=== PATIENT | male | born 1950 | race Caucasian/White ===

== ENCOUNTER 2020-03-13 12:48 | Inpatient (IN) | payer MEDICARE, BC ==
[~2020-03-13] VITALS: Ht 182.9 cm; Wt 59.1 kg
[2020-03-13] MEDS ORDERED: normal saline 1000ML IV soln IVB ONE (13:55)
[2020-03-13 14:21] LABS: BASOPHILS # (AUTO) 0.1 X10'3 (0-0.2); BASOPHILS % (AUTO) 0.8 % (0-1); EOSINOPHILS # (AUTO) 0.1 X10'3 (0-0.9); EOSINOPHILS % (AUTO) 0.9 % (0-6); HEMATOCRIT 42.5 % (42.0-52.0); HEMOGLOBIN 14.4 g/dl (14.0-17.9); LYMPHOCYTES # (AUTO) 3.5 X10'3 (1.1-4.8); LYMPHOCYTES % (AUTO) 32.4 % (21-51); MEAN CORPUSCULAR HEMOGLOBIN 33.8 PG (27.0-31.0); MEAN CORPUSCULAR HGB CONC 33.9 g/dL (33.0-36.5); MEAN CORPUSCULAR VOLUME 99.7 FL (78-98); MEAN PLATELET VOLUME 7.2 FL (7.4-10.4); MONOCYTES # (AUTO) 0.6 X10'3 (0-0.9); MONOCYTES % (AUTO) 5.9 % (2-12); NEUTROPHILS # (AUTO) 6.5 X10'3 (1.8-7.7); PLATELET COUNT 496 X10'3 (140-440); RED BLOOD COUNT 4.26 X10'6 (4.70-6.10); RED CELL DISTRIBUTION WIDTH 13.7 % (11.5-14.5); WHITE BLOOD COUNT 10.8 X10'3 (4.5-11.0)
[2020-03-13 14:39] LABS: ALANINE AMINOTRANSFERASE 34 U/L (12-78); ALBUMIN 3.1 G/DL (3.4-5.0); ALBUMIN/GLOBULIN RATIO 0.8 (1.1-1.5); ALKALINE PHOSPHATASE 62 IU/L (46-116); ANION GAP 11 (8-16); ASPARTATE AMINO TRANSFERASE 19 U/L (10-37); BILIRUBIN,TOTAL 0.7 MG/DL (0.1-1.0); BLOOD UREA NITROGEN 8 MG/DL (7-18); BUN/CREATININE RATIO 13.6 (5.4-32.0); CHLORIDE 104 MMOL/L (99-107); CREATININE 0.59 MG/DL (0.60-1.10); GLUCOSE 79 MG/DL (70-104); POTASSIUM 3.8 MMOL/L (3.5-5.1); SODIUM 138 MMOL/L (135-145); TOTAL CARBON DIOXIDE 23.2 MMOL/L (24-32); TOTAL PROTEIN 6.8 G/DL (6.4-8.2); eGFR > 90 ML/MIN
[2020-03-13 14:48] LABS: ETHANOL < 0.010 GM/DL (0.0-0.010)
[2020-03-14] MEDS: normal saline 1000ml 1,000 ML IV SCH ×2 (01:11→23:06)
[2020-03-14] MEDS ORDERED: potassium Cl 20 mEq SR tablet PO PRN (01:15)
[2020-03-14] MEDS ORDERED: mag hydrox/Alum hydrox/simeth 30ml oral suspension PO PRN (01:15)
[2020-03-14] MEDS ORDERED: magnesium 2GM in 50ml NS 50 ML IV PRN (01:15)
[2020-03-14] MEDS ORDERED: magnesium 4gm in 100ml NS 100 ML IV PRN (01:15)
[2020-03-14] MEDS ORDERED: potassium CL 10mEq/100ml bag 100 ML IV PRN ×2 (01:15)
[2020-03-14 05:00] VITALS: BP 137/85
--- NOTE | 2020-03-14 05:23 | NUR ---
0500 Patient arrived via [facility]. He was able to transfer himslef from [facility] by scooting over. CORTES Owens transferred patent and belongings. I had received report from Graciela, prior to patient being transferred. Addendum: 03/15/20 at 1950 by Paul Agrawal RN Patient did come up to the unit in a hospital gown, I changed it into another one because it was dirty. There was not a cell phone with him at the time of transfer to our unit.
--- NOTE | 2020-03-14 06:29 | NUR ---
Problems reprioritized. Patient report given, questions answered & plan of care reviewed with CORTES Villanueva.
--- NOTE | 2020-03-14 06:35 | NUR ---
Patient in room ORTHO 4009. I have received report from CORTES Miller and had the opportunity to ask questions and assume patient care.
[2020-03-14] MEDS: docusate sod 100mg capsule PO SCH ×2 (08:00→21:13)
[2020-03-14] MEDS: K and/or MAG REPLACEMENT MC SCH ×2 (08:00→20:00)
[2020-03-14 09:36] VITALS: BP 124/82
--- NOTE | 2020-03-14 12:09 | NUR ---
Student documentation: I have reviewed all interventions, assessments performed and documented by CypressVicente Reyes Nicolaus. Student Medication Administration: For this medication-pass time frame, all medication were reviewed, dispensed, administered and documented per hospital policy by Cypress ramo [facility].
--- NOTE | 2020-03-14 14:32 | NUR ---
Low BMI trigger: Pt BMI 17.7. No scaled wt at this time and first admit; MAYRA d/w RN regarding new scaled wt if possible. Pt admit DX weakness, confusion, hx living in hotel and pending eviction when called 911 per EMR. Pt has no significant weakness, no edema/wounds, PO ~50% avg regular diet so far this admit, and appears well-developed/well-nourished per ER note. At this time does not meet minimum malnutrition criteria. Will monitor for ONS needs pending updated wt this admit. To f/u 03/19 for initial assessment. Addendum: 03/14/20 at [address] Amended: Links added.
--- NOTE | 2020-03-14 16:30 | NUR ---
Malnutrition Consult "pt reports hasn't eaten in days": RN TC reports pt non-compliant and WC bound so unable to take scaled wt at this time. No scaled wt this admit. Pt PO 50% avg meals so far this admit decent PO though unable to determine if fully meeting needs since no wt at this time. Will monitor for additional malnutrition criteria this admit. Addendum: 03/14/20 at [address] Amended: Links added.
[2020-03-14 18:00] VITALS: BP 122/81
--- NOTE | 2020-03-14 18:22 | NUR ---
Problems reprioritized. Patient report given, questions answered & plan of care reviewed with Graciela Black RN.
--- NOTE | 2020-03-14 18:37 | NUR ---
Patient in room ORTHO 4009. I have received report from CORTES Villanueva and had the opportunity to ask questions and assume patient care. Addendum: 03/14/20 at 1837 by Ledy Corey RN Amended: Links added.
[2020-03-14] MEDS ORDERED: OLANZapine 2.5MG tablet PO SCH (21:00)
--- NOTE | 2020-03-14 21:34 | NUR ---
talked to traffic warehouse supervisor Gino about cell phone supposedly missing. he will come see patient in a little bit. housekeeping already brought up 3 phones that they have in lost and found - none match his phone. linens being searched as well.
[2020-03-14 22:00] VITALS: BP 139/94
--- NOTE | 2020-03-14 22:23 | NUR ---
Gino, preparation supervisor freezing came to speak with patient.
[2020-03-15 01:32] LABS: CLARITY,URINE CLEAR (Clear); COLOR,URINE YELLOW (Yellow); GLUCOSE, URINE NEGATIVE (Neg); KETONES,URINE NEGATIVE (Neg); LEUKOCYTE ESTERASE ,URINE NEGATIVE (Neg); NITRITES, URINE NEGATIVE (Neg); OCCULT BLOOD,URINE NEGATIVE (Neg); PROTEIN,URINE TRACE mg/dl (Neg); UROBILINOGEN,URINE 0.2 E.U/dL (0.2-1.0)
[2020-03-15 01:35] LABS: UA COLLECTION TYPE NON-SPECIFIED
[2020-03-15 01:37] LABS: BACTERIA,URINE NONE SEEN /HPF (Neg); RBC,URINE 0-2 /HPF (0-2); SQUAMOUS EPITHELIAL CELL,UR FEW /LPF (FEW); WBC,URINE NONE SEEN /HPF (0-4)
[2020-03-15 01:46] LABS: URINE AMPHETAMINE SCREEN NEGATIVE (Neg); URINE BARBITUATE SCREEN NEGATIVE (Neg); URINE BENZODIAZEPINES SCREEN NEGATIVE (Neg); URINE CANNABINOID SCREEN POSITIVE (Neg); URINE COCAINE SCREEN NEGATIVE (Neg); URINE METHADONE SCREEN NEGATIVE (Neg); URINE OPIATE SCREEN NEGATIVE (Neg); URINE PHENCYCLIDINE SCREEN NEGATIVE (Neg)
[2020-03-15 06:00] VITALS: BP 121/81
--- NOTE | 2020-03-15 06:23 | NUR ---
Problems reprioritized. Patient report given, questions answered & plan of care reviewed with CORTES Swain.
[2020-03-15 06:38] LABS: BASOPHILS # (AUTO) 0.1 X10'3 (0-0.2); EOSINOPHILS # (AUTO) 0.1 X10'3 (0-0.9); EOSINOPHILS % (AUTO) 1.3 % (0-6); HEMATOCRIT 35.9 % (42.0-52.0); HEMOGLOBIN 12.4 g/dl (14.0-17.9); LYMPHOCYTES # (AUTO) 2.9 X10'3 (1.1-4.8); LYMPHOCYTES % (AUTO) 30.6 % (21-51); MEAN CORPUSCULAR HEMOGLOBIN 34.2 PG (27.0-31.0); MEAN CORPUSCULAR HGB CONC 34.6 g/dL (33.0-36.5); MEAN CORPUSCULAR VOLUME 98.7 FL (78-98); MEAN PLATELET VOLUME 7.3 FL (7.4-10.4); MONOCYTES # (AUTO) 0.6 X10'3 (0-0.9); MONOCYTES % (AUTO) 6.7 % (2-12); NEUTROPHILS # (AUTO) 5.7 X10'3 (1.8-7.7); NEUTROPHILS % (AUTO) 60.4 % (42-75); PLATELET COUNT 427 X10'3 (140-440); RED BLOOD COUNT 3.63 X10'6 (4.70-6.10); RED CELL DISTRIBUTION WIDTH 13.3 % (11.5-14.5); WHITE BLOOD COUNT 9.4 X10'3 (4.5-11.0)
[2020-03-15 06:45] LABS: ALBUMIN 2.6 G/DL (3.4-5.0); ANION GAP 10 (8-16); BLOOD UREA NITROGEN 8 MG/DL (7-18); BUN/CREATININE RATIO 15.7 (5.4-32.0); CALCIUM 8.4 MG/DL (8.5-10.1); CHLORIDE 108 MMOL/L (99-107); CREATININE 0.51 MG/DL (0.60-1.10); GLUCOSE 84 MG/DL (70-104); MAGNESIUM 1.3 MG/DL (1.5-2.4); POTASSIUM 3.3 MMOL/L (3.5-5.1); SODIUM 141 MMOL/L (135-145); eGFR > 90 ML/MIN
--- NOTE | 2020-03-15 06:57 | NUR ---
Problems reprioritized. Patient report given, questions answered & plan of care reviewed with Graciela KOLB.
[2020-03-15] MEDS: normal saline 1000ml 1,000 ML IV SCH ×2 (07:33→21:47)
[2020-03-15] MEDS: magnesium Cl slow-release 64mg tablet PO PRN ×2 (07:48→21:51)
[2020-03-15] MEDS: potassium Cl 20 mEq SR tablet PO PRN ×3 (07:48→21:51)
[2020-03-15] MEDS: docusate sod 100mg capsule PO SCH ×2 (07:51→21:21)
[2020-03-15] MEDS: K and/or MAG REPLACEMENT MC SCH ×2 (08:00→20:00)
[2020-03-15 10:00] VITALS: BP 113/72
[2020-03-15] MEDS: HYDROcodone/acetaminophen 5mg/325mg tablet PO PRN (14:48)
[2020-03-15 18:00] VITALS: BP 131/90
--- NOTE | 2020-03-15 18:16 | NUR ---
Problems reprioritized. Patient report given, questions answered & plan of care reviewed with Elsy KOLB.
--- NOTE | 2020-03-15 18:46 | NUR ---
Patient in room ORTHO 4009. I have received report from MARCOS KOLB and had the opportunity to ask questions and assume patient care.
[2020-03-15] MEDS: OLANZAPINE 5 MG TABLET PO SCH (21:21)
[2020-03-15 22:00] VITALS: BP 140/74
[2020-03-16 06:10] VITALS: BP 143/88
[2020-03-16 06:18] LABS: BASOPHILS # (AUTO) 0.1 X10'3 (0-0.2); BASOPHILS % (AUTO) 1.2 % (0-1); EOSINOPHILS # (AUTO) 0.1 X10'3 (0-0.9); EOSINOPHILS % (AUTO) 1.1 % (0-6); HEMOGLOBIN 12.7 g/dl (14.0-17.9); LYMPHOCYTES % (AUTO) 25.7 % (21-51); MEAN CORPUSCULAR HEMOGLOBIN 34.4 PG (27.0-31.0); MEAN CORPUSCULAR HGB CONC 34.4 g/dL (33.0-36.5); MEAN CORPUSCULAR VOLUME 100.1 FL (78-98); MEAN PLATELET VOLUME 7.3 FL (7.4-10.4); MONOCYTES # (AUTO) 0.6 X10'3 (0-0.9); MONOCYTES % (AUTO) 5.6 % (2-12); NEUTROPHILS # (AUTO) 7.7 X10'3 (1.8-7.7); NEUTROPHILS % (AUTO) 66.4 % (42-75); PLATELET COUNT 437 X10'3 (140-440); RED CELL DISTRIBUTION WIDTH 12.9 % (11.5-14.5); WHITE BLOOD COUNT 11.6 X10'3 (4.5-11.0)
[2020-03-16 06:19] LABS: HEMOGLOBIN A1C 4.9 % (4.5-6.2)
--- NOTE | 2020-03-16 06:31 | NUR ---
Patient in room ORTHO 4009. I have received report from Elsy KOLB and had the opportunity to ask questions and assume patient care.
--- NOTE | 2020-03-16 06:45 | NUR ---
0400 INCONTINENT OF LARGE SOFT AND UNFORMED STOOL, LINEN CHANGED AND SKIN CARE GIVEN. WITHIN 20 MINS. WAS INCONTINENT AGAIN OF SOFT/LIQUID STOOL. BY 0530 PATIENT HAS 4 LIQUID/URGENT STOOLS. SAMPLE COLLECTED AND SENT TO LAB FOR TESTING. REPORT TO EARLY SHIFT RN AT 0630
[2020-03-16 06:46] LABS: ALBUMIN 2.8 G/DL (3.4-5.0); ANION GAP 12 (8-16); BLOOD UREA NITROGEN 5 MG/DL (7-18); BUN/CREATININE RATIO 9.6 (5.4-32.0); CHLORIDE 108 MMOL/L (99-107); CHOL/HDL RATIO 3.9 (0.00-4.99); CHOLESTEROL 148 MG/DL (0-200); CREATININE 0.52 MG/DL (0.60-1.10); GLUCOSE 87 MG/DL (70-104); HDL CHOLESTEROL 38 MG/DL (35-60); LDL CHOLESTEROL 93 MG/DL (50-100); MAGNESIUM 1.2 MG/DL (1.5-2.4); SODIUM 142 MMOL/L (135-145); TOTAL CARBON DIOXIDE 22.5 MMOL/L (24-32); TRIGLYCERIDES 115 MG/DL (20-135); eGFR > 90 ML/MIN
[2020-03-16 06:52] LABS: CALCIUM 8.4 MG/DL (8.5-10.1)
[2020-03-16] MEDS: docusate sod 100mg capsule PO SCH ×2 (08:00→20:00)
[2020-03-16] MEDS: K and/or MAG REPLACEMENT MC SCH ×2 (08:00→20:00)
[2020-03-16] MEDS: normal saline 1000ml 1,000 ML IV SCH (09:08)
[2020-03-16 10:00] VITALS: BP 96/68
[2020-03-16] MEDS: HYDROcodone/acetaminophen 5mg/325mg tablet PO PRN (10:00)
[2020-03-16] MEDS: magnesium Cl slow-release 64mg tablet PO PRN ×2 (10:01→20:48)
[2020-03-16 13:28] LABS: C DIFF ANTIGEN SEE COMMENTS (NEGATIVE); C DIFF SPECIMEN=DIARRHEA? ACCEPTABLE; C DIFFICILE TOXINS A&B NEGATIVE (Neg)
[2020-03-16 13:34] LABS: C DIFF TOXIN (LAMP) POSITIVE (NEG)
--- NOTE | 2020-03-16 13:57 | NUR ---
Paged Dr. Kimbrough about patient being C-Diff positive.
[2020-03-16] MEDS: vancomycin 125mg/5ml ORAL solution 5ml UD bottle PO SCH ×2 (16:25→20:48)
[2020-03-16 18:00] VITALS: BP 114/77
--- NOTE | 2020-03-16 18:48 | NUR ---
Problems reprioritized. Patient report given, questions answered & plan of care reviewed with Elsy KOLB.
[2020-03-16] MEDS ORDERED: pantoprazole 40mg Tablet.DR PO ONE (19:20)
[2020-03-16] MEDS: OLANZAPINE 5 MG TABLET PO SCH (20:45)
[2020-03-16] MEDS: ondansetron/PF 4mg/2ml inj IV PRN (21:06)
[2020-03-16 21:08] VITALS: BP 142/96
[2020-03-16 22:00] VITALS: BP 142/96
[2020-03-17] MEDS: vancomycin 125mg/5ml ORAL solution 5ml UD bottle PO SCH ×4 (03:03→20:12)
[2020-03-17 06:00] VITALS: BP 100/69
[2020-03-17 06:01] LABS: BASOPHILS # (AUTO) 0.2 X10'3 (0-0.2); BASOPHILS % (AUTO) 1.5 % (0-1); EOSINOPHILS # (AUTO) 0.1 X10'3 (0-0.9); EOSINOPHILS % (AUTO) 0.7 % (0-6); HEMATOCRIT 38.2 % (42.0-52.0); LYMPHOCYTES # (AUTO) 3.1 X10'3 (1.1-4.8); LYMPHOCYTES % (AUTO) 19.8 % (21-51); MEAN CORPUSCULAR HEMOGLOBIN 33.7 PG (27.0-31.0); MEAN CORPUSCULAR VOLUME 99.3 FL (78-98); MEAN PLATELET VOLUME 7.4 FL (7.4-10.4); MONOCYTES # (AUTO) 0.8 X10'3 (0-0.9); MONOCYTES % (AUTO) 4.8 % (2-12); NEUTROPHILS # (AUTO) 11.5 X10'3 (1.8-7.7); NEUTROPHILS % (AUTO) 73.2 % (42-75); PLATELET COUNT 453 X10'3 (140-440); RED BLOOD COUNT 3.85 X10'6 (4.70-6.10); RED CELL DISTRIBUTION WIDTH 13.1 % (11.5-14.5); WHITE BLOOD COUNT 15.8 X10'3 (4.5-11.0)
--- NOTE | 2020-03-17 06:15 | NUR ---
Problems reprioritized. Patient report given, questions answered & plan of care reviewed with CORTES DIEHL.
[2020-03-17 06:26] LABS: ALBUMIN 2.9 G/DL (3.4-5.0); ANION GAP 11 (8-16); BLOOD UREA NITROGEN 6 MG/DL (7-18); BUN/CREATININE RATIO 8.8 (5.4-32.0); CALCIUM 8.9 MG/DL (8.5-10.1); CHLORIDE 108 MMOL/L (99-107); CREATININE 0.68 MG/DL (0.60-1.10); GLUCOSE 98 MG/DL (70-104); MAGNESIUM 1.3 MG/DL (1.5-2.4); POTASSIUM 3.4 MMOL/L (3.5-5.1); SODIUM 144 MMOL/L (135-145); TOTAL CARBON DIOXIDE 25.1 MMOL/L (24-32); eGFR > 90 ML/MIN
--- NOTE | 2020-03-17 06:32 | NUR ---
AGREED WITH STUDENTS ASSMT AND REPORT GIVEN TO FAZAL.
[2020-03-17] MEDS: sertraline 25mg tablet PO SCH (07:55)
[2020-03-17] MEDS: pantoprazole 40mg Tablet.DR PO SCH (07:55)
[2020-03-17] MEDS: docusate sod 100mg capsule PO SCH ×2 (08:00→19:59)
[2020-03-17] MEDS: K and/or MAG REPLACEMENT MC SCH ×2 (08:00→19:59)
[2020-03-17 10:00] VITALS: BP 100/62
[2020-03-17] MEDS ORDERED: normal saline 1000ml 1,000 ML IV SCH (13:55)
[2020-03-17 18:00] VITALS: BP 107/73
--- NOTE | 2020-03-17 18:10 | NUR ---
Received report from Juan Diego KOLB.
--- NOTE | 2020-03-17 18:16 | NUR ---
Problems reprioritized. Patient report given, questions answered & plan of care reviewed with Bree.
[2020-03-17] MEDS ORDERED: potassium CL 10mEq/100ml bag 100 ML IV PRN (18:50)
[2020-03-17] MEDS ORDERED: potassium Cl 20 mEq SR tablet PO PRN (18:50)
[2020-03-17] MEDS ORDERED: magnesium 4gm in 100ml NS 100 ML IV PRN (18:50)
[2020-03-17] MEDS: potassium Cl 20 mEq SR tablet PO PRN (20:08)
[2020-03-17] MEDS: normal saline 1000ml 1,000 ML IV SCH (20:08)
[2020-03-17] MEDS: OLANZAPINE 5 MG TABLET PO SCH (20:08)
[2020-03-17 22:00] VITALS: BP 117/68
[2020-03-18] MEDS: vancomycin 125mg/5ml ORAL solution 5ml UD bottle PO SCH ×4 (02:12→22:13)
[2020-03-18] MEDS: potassium Cl 20 mEq SR tablet PO PRN (02:12)
[2020-03-18] MEDS: normal saline 1000ml 1,000 ML IV SCH ×2 (05:24→15:49)
[2020-03-18 06:00] VITALS: BP 114/75
--- NOTE | 2020-03-18 06:08 | NUR ---
Report given to Shelly KOLB.
[2020-03-18 06:21] LABS: BASOPHILS # (AUTO) 0.1 X10'3 (0-0.2); BASOPHILS % (AUTO) 1.4 % (0-1); EOSINOPHILS # (AUTO) 0.1 X10'3 (0-0.9); EOSINOPHILS % (AUTO) 1.1 % (0-6); HEMATOCRIT 33.1 % (42.0-52.0); HEMOGLOBIN 11.6 g/dl (14.0-17.9); LYMPHOCYTES # (AUTO) 2.7 X10'3 (1.1-4.8); LYMPHOCYTES % (AUTO) 24.6 % (21-51); MEAN CORPUSCULAR HEMOGLOBIN 35.4 PG (27.0-31.0); MEAN CORPUSCULAR HGB CONC 34.9 g/dL (33.0-36.5); MEAN CORPUSCULAR VOLUME 101.4 FL (78-98); MEAN PLATELET VOLUME 7.6 FL (7.4-10.4); MONOCYTES # (AUTO) 0.6 X10'3 (0-0.9); MONOCYTES % (AUTO) 5.6 % (2-12); NEUTROPHILS # (AUTO) 7.3 X10'3 (1.8-7.7); NEUTROPHILS % (AUTO) 67.3 % (42-75); PLATELET COUNT 375 X10'3 (140-440); RED BLOOD COUNT 3.26 X10'6 (4.70-6.10); RED CELL DISTRIBUTION WIDTH 13.1 % (11.5-14.5); WHITE BLOOD COUNT 10.8 X10'3 (4.5-11.0)
[2020-03-18 06:35] LABS: ALBUMIN 2.4 G/DL (3.4-5.0); ANION GAP 11 (8-16); BLOOD UREA NITROGEN 7 MG/DL (7-18); BUN/CREATININE RATIO 12.3 (5.4-32.0); CALCIUM 8.4 MG/DL (8.5-10.1); CHLORIDE 112 MMOL/L (99-107); CREATININE 0.57 MG/DL (0.60-1.10); GLUCOSE 94 MG/DL (70-104); MAGNESIUM 1.3 MG/DL (1.5-2.4); SODIUM 142 MMOL/L (135-145); TOTAL CARBON DIOXIDE 19.4 MMOL/L (24-32); eGFR > 90 ML/MIN
[2020-03-18] MEDS: docusate sod 100mg capsule PO SCH ×2 (07:53→20:00)
[2020-03-18] MEDS: K and/or MAG REPLACEMENT MC SCH ×2 (08:00→19:19)
[2020-03-18] MEDS: pantoprazole 40mg Tablet.DR PO SCH (08:49)
[2020-03-18] MEDS: sertraline 25mg tablet PO SCH (08:49)
[2020-03-18] MEDS: magnesium Cl slow-release 64mg tablet PO PRN (09:35)
[2020-03-18 10:31] VITALS: BP 109/70
[2020-03-18] MEDS: LORazepam 0.5 MG tablet PO PRN (17:22)
[2020-03-18 18:00] VITALS: BP_SYST 131; BP_SYST 84; BP_DIAS 36; BP_DIAS 86
--- NOTE | 2020-03-18 18:31 | NUR ---
Problems reprioritized. Patient report given, questions answered & plan of care reviewed with CORTES Varma.
[2020-03-18 22:00] VITALS: BP 113/74
[2020-03-18] MEDS: OLANZAPINE 5 MG TABLET PO SCH (22:13)
[2020-03-19] MEDS: normal saline 1000ml 1,000 ML IV SCH ×3 (02:00→22:00)
[2020-03-19] MEDS: vancomycin 125mg/5ml ORAL solution 5ml UD bottle PO SCH ×4 (02:32→20:59)
[2020-03-19] MEDS: magnesium Cl slow-release 64mg tablet PO PRN ×3 (02:32→20:59)
[2020-03-19 05:36] LABS: BASOPHILS # (AUTO) 0.1 X10'3 (0-0.2); BASOPHILS % (AUTO) 1.5 % (0-1); EOSINOPHILS # (AUTO) 0.2 X10'3 (0-0.9); EOSINOPHILS % (AUTO) 1.8 % (0-6); HEMATOCRIT 34.1 % (42.0-52.0); HEMOGLOBIN 11.7 g/dl (14.0-17.9); LYMPHOCYTES # (AUTO) 2.8 X10'3 (1.1-4.8); LYMPHOCYTES % (AUTO) 30.3 % (21-51); MEAN CORPUSCULAR HGB CONC 34.2 g/dL (33.0-36.5); MEAN CORPUSCULAR VOLUME 99.4 FL (78-98); MEAN PLATELET VOLUME 7.4 FL (7.4-10.4); MONOCYTES # (AUTO) 0.5 X10'3 (0-0.9); MONOCYTES % (AUTO) 5.6 % (2-12); NEUTROPHILS # (AUTO) 5.5 X10'3 (1.8-7.7); NEUTROPHILS % (AUTO) 60.8 % (42-75); PLATELET COUNT 352 X10'3 (140-440); RED BLOOD COUNT 3.43 X10'6 (4.70-6.10); RED CELL DISTRIBUTION WIDTH 12.9 % (11.5-14.5); WHITE BLOOD COUNT 9.1 X10'3 (4.5-11.0)
[2020-03-19 05:46] LABS: ALBUMIN 2.5 G/DL (3.4-5.0); ANION GAP 9 (8-16); BLOOD UREA NITROGEN 5 MG/DL (7-18); BUN/CREATININE RATIO 9.8 (5.4-32.0); CALCIUM 8.8 MG/DL (8.5-10.1); CHLORIDE 110 MMOL/L (99-107); CREATININE 0.51 MG/DL (0.60-1.10); GLUCOSE 83 MG/DL (70-104); MAGNESIUM 1.3 MG/DL (1.5-2.4); POTASSIUM 3.9 MMOL/L (3.5-5.1); SODIUM 140 MMOL/L (135-145); eGFR > 90 ML/MIN
[2020-03-19] MEDS: K and/or MAG REPLACEMENT MC SCH ×2 (08:00→20:00)
[2020-03-19] MEDS: sertraline 25mg tablet PO SCH (08:17)
[2020-03-19] MEDS: docusate sod 100mg capsule PO SCH ×2 (08:18→20:59)
[2020-03-19] MEDS: pantoprazole 40mg Tablet.DR PO SCH (08:18)
[2020-03-19 10:00] VITALS: BP 116/81
[2020-03-19] MEDS: LORazepam 0.5 MG tablet PO PRN (10:32)
--- NOTE | 2020-03-19 11:46 | NUR ---
Initial: Pt admit DX weakness essentially WC bound and homeless, c.diff, depression, and possible personality disorder per MD note. PO fluctuates 25-50% initial meals w/ occasional 100% partially meeting needs. BMI 17.7 pending updated wt this admit; MAYRA d/w RN regarding new wt this admit and holding routine colace given c.diff DX if MD agreeable. Pt well-developed/well-nourished per ER note. Noted emesis of undigested food documented in EMR though continued PO meals; likely error. RD recommended ensure enlive BIDBD for additional protein/kcal needs; MD notified. Pt AOx3 and confused likely impacting PO as well. Will continue to monitor for PO/ONS acceptance. Rec: 1. continue regular diet 2. ensure enlive BIDBD 3. consider anti-diarrheal if MD agreeable given DX 4. weekly wts Addendum: 03/19/20 at [address] Amended: Links added.
[2020-03-19 18:00] VITALS: BP 126/81
--- NOTE | 2020-03-19 18:46 | NUR ---
Patient in room ORTHO 4009. I have received report from Julienne KOLB and had the opportunity to ask questions and assume patient care.
--- NOTE | 2020-03-19 18:50 | NUR ---
Problems reprioritized. Patient report given, questions answered & plan of care reviewed with CORTES Parr.
[2020-03-19] MEDS: OLANZAPINE 5 MG TABLET PO SCH (20:59)
[2020-03-19 22:00] VITALS: BP 98/64
[2020-03-20] MEDS: vancomycin 125mg/5ml ORAL solution 5ml UD bottle PO SCH ×4 (03:20→20:34)
--- NOTE | 2020-03-20 06:20 | NUR ---
Problems reprioritized. Patient report given, questions answered & plan of care reviewed with Asim KOLB.
--- NOTE | 2020-03-20 06:33 | NUR ---
Patient in room ORTHO 4009. I have received report from AZIZA and had the opportunity to ask questions and assume patient care.
[2020-03-20 06:35] VITALS: BP 131/84
[2020-03-20] MEDS: sertraline 25mg tablet PO SCH (07:14)
[2020-03-20] MEDS: docusate sod 100mg capsule PO SCH ×2 (07:14→20:34)
[2020-03-20] MEDS: pantoprazole 40mg Tablet.DR PO SCH (07:14)
[2020-03-20] MEDS: normal saline 1000ml 1,000 ML IV SCH ×2 (07:17→18:00)
[2020-03-20] MEDS: K and/or MAG REPLACEMENT MC SCH ×2 (08:00→20:00)
[2020-03-20] MEDS: HYDROcodone/acetaminophen 5mg/325mg tablet PO PRN ×2 (08:52→13:28)
--- NOTE | 2020-03-20 10:56 | NUR ---
transfers mod x1 with nursing from wheel chair to bed. Addendum: 03/20/20 at 1057 by Asim Persaud RN Amended: Links added.
[2020-03-20] MEDS ORDERED: GADOTERATE MEGLUMINE 7.5 MMOL/15 ML VIAL IV ONE (11:06)
--- NOTE | 2020-03-20 12:15 | NUR ---
Student documentation: I have reviewed assessment performed and documented by Mackenzie GRANADOS [facility].
--- NOTE | 2020-03-20 15:31 | NUR ---
Student documentation: I have reviewed all interventions, assessments performed and documented by Twila VAZQUEZ
[2020-03-20 18:00] VITALS: BP 150/98
--- NOTE | 2020-03-20 18:22 | NUR ---
Problems reprioritized. Patient report given, questions answered & plan of care reviewed with
--- NOTE | 2020-03-20 18:42 | NUR ---
Patient in room ORTHO 4009. I have received report from Asim KOLB and had the opportunity to ask questions and assume patient care.
[2020-03-20] MEDS: OLANZAPINE 5 MG TABLET PO SCH (20:34)
[2020-03-20 22:00] VITALS: BP 131/78
--- NOTE | 2020-03-21 00:42 | NUR ---
Paged hospitalist about ordering K and MG replacement protocol. Pt. MG was 1.3 today. No response. Will pass onto day shift RN
[2020-03-21] MEDS: vancomycin 125mg/5ml ORAL solution 5ml UD bottle PO SCH ×4 (01:32→22:10)
[2020-03-21] MEDS: normal saline 1000ml 1,000 ML IV SCH ×2 (03:57→14:00)
[2020-03-21] MEDS: HYDROcodone/acetaminophen 5mg/325mg tablet PO PRN ×2 (05:57→17:53)
[2020-03-21 06:00] VITALS: BP 136/83
--- NOTE | 2020-03-21 06:37 | NUR ---
Problems reprioritized. Patient report given, questions answered & plan of care reviewed with Becky KOLB.
--- NOTE | 2020-03-21 06:44 | NUR ---
Patient in room ORTHO 4009. I have received report from CORTES Slade and had the opportunity to ask questions and assume patient care.
[2020-03-21] MEDS: K and/or MAG REPLACEMENT MC SCH ×3 (08:00→20:00)
[2020-03-21] MEDS: sertraline 25mg tablet PO SCH (09:03)
[2020-03-21] MEDS: pantoprazole 40mg Tablet.DR PO SCH (09:03)
[2020-03-21] MEDS: docusate sod 100mg capsule PO SCH ×2 (09:03→22:10)
[2020-03-21 10:00] VITALS: BP 123/72
--- NOTE | 2020-03-21 14:43 | NUR ---
PT notified primary RN of skin tear to left posterior hand, occurring during physical therapy when pt was transferring self to wheelchair. Hydrophyllic foam applied. Will continue to monitor.
[2020-03-21] MEDS ORDERED: magnesium Cl slow-release 64mg tablet PO PRN (15:30)
[2020-03-21] MEDS ORDERED: magnesium 4gm in 100ml NS 100 ML IV PRN (15:30)
[2020-03-21] MEDS ORDERED: potassium Cl 20 mEq SR tablet PO PRN ×2 (15:30)
[2020-03-21] MEDS ORDERED: potassium CL 10mEq/100ml bag 100 ML IV PRN (15:30)
[2020-03-21 18:00] VITALS: BP 112/71
--- NOTE | 2020-03-21 18:00 | NUR ---
RECEIVED REPORT FROM NNEKA KOLB AND ASSUMED PATIENT CARE
--- NOTE | 2020-03-21 18:37 | NUR ---
Problems reprioritized. Patient report given, questions answered & plan of care reviewed with CORTES Green.
[2020-03-21 22:00] VITALS: BP 112/75
[2020-03-21] MEDS: OLANZAPINE 5 MG TABLET PO SCH (22:10)
[2020-03-22] MEDS: vancomycin 125mg/5ml ORAL solution 5ml UD bottle PO SCH ×4 (01:56→20:23)
[2020-03-22 03:30] VITALS: BP 123/83
[2020-03-22 05:26] LABS: BASOPHILS # (AUTO) 0.1 X10'3 (0-0.2); BASOPHILS % (AUTO) 1.2 % (0-1); EOSINOPHILS # (AUTO) 0.1 X10'3 (0-0.9); EOSINOPHILS % (AUTO) 1.5 % (0-6); HEMATOCRIT 33.3 % (42.0-52.0); HEMOGLOBIN 11.5 g/dl (14.0-17.9); LYMPHOCYTES # (AUTO) 2.7 X10'3 (1.1-4.8); LYMPHOCYTES % (AUTO) 27.7 % (21-51); MEAN CORPUSCULAR HEMOGLOBIN 34.5 PG (27.0-31.0); MEAN CORPUSCULAR HGB CONC 34.6 g/dL (33.0-36.5); MEAN CORPUSCULAR VOLUME 99.6 FL (78-98); MEAN PLATELET VOLUME 8.1 FL (7.4-10.4); MONOCYTES # (AUTO) 0.6 X10'3 (0-0.9); MONOCYTES % (AUTO) 5.8 % (2-12); NEUTROPHILS # (AUTO) 6.3 X10'3 (1.8-7.7); NEUTROPHILS % (AUTO) 63.8 % (42-75); PLATELET COUNT 356 X10'3 (140-440); RED BLOOD COUNT 3.34 X10'6 (4.70-6.10); RED CELL DISTRIBUTION WIDTH 12.9 % (11.5-14.5); WHITE BLOOD COUNT 9.8 X10'3 (4.5-11.0)
[2020-03-22 06:05] LABS: ALANINE AMINOTRANSFERASE 23 U/L (12-78); ALBUMIN 2.8 G/DL (3.4-5.0); ALBUMIN/GLOBULIN RATIO 0.9 (1.1-1.5); ALKALINE PHOSPHATASE 49 IU/L (46-116); ANION GAP 10 (8-16); ASPARTATE AMINO TRANSFERASE 11 U/L (10-37); BILIRUBIN,TOTAL 0.4 MG/DL (0.1-1.0); BLOOD UREA NITROGEN 8 MG/DL (7-18); BUN/CREATININE RATIO 15.7 (5.4-32.0); CALCIUM 8.6 MG/DL (8.5-10.1); CHLORIDE 106 MMOL/L (99-107); CREATININE 0.51 MG/DL (0.60-1.10); GLUCOSE 89 MG/DL (70-104); POTASSIUM 3.5 MMOL/L (3.5-5.1); SODIUM 141 MMOL/L (135-145); TOTAL CARBON DIOXIDE 24.7 MMOL/L (24-32); TOTAL PROTEIN 5.8 G/DL (6.4-8.2); eGFR > 90 ML/MIN
--- NOTE | 2020-03-22 06:18 | NUR ---
Reported off to Becky KOLB. Patient is resting with relaxed and unlabored respirations on room air. Call light and items of frequent use within reach.
--- NOTE | 2020-03-22 06:23 | NUR ---
Patient in room LILY 358. I have received report from CORTES Willson and had the opportunity to ask questions and assume patient care.
[2020-03-22 07:00] VITALS: BP 122/86
[2020-03-22] MEDS: docusate sod 100mg capsule PO SCH ×2 (08:00→19:30)
[2020-03-22] MEDS: K and/or MAG REPLACEMENT MC SCH ×4 (08:00→19:32)
[2020-03-22] MEDS: sertraline 25mg tablet PO SCH (08:39)
[2020-03-22] MEDS: pantoprazole 40mg Tablet.DR PO SCH (08:39)
[2020-03-22 11:00] VITALS: BP 114/75
--- NOTE | 2020-03-22 14:20 | NUR ---
Reassessment: Pt s/p MRI of the cervical spine, awaiting return call from spinal surgeon/neurosurgeon to discuss the MRI results per MD notes. Patient's PO intake is up to average 75-100% since last RD assessment (03/19) meeting estimated nutrient needs. LBM 03/22, stools improving per MD notes though pt documented with diarrhea today in GI trends. Will continue to follow and monitor need for nutrition intervention. Rec: 1. continue regular diet 2. Ensure Enlive BIDBD 3. consider anti-diarrheal if MD agreeable given DX 4. weekly wts Addendum: 03/22/20 at [address] Amended: Links added.
[2020-03-22 18:00] VITALS: BP 135/87
--- NOTE | 2020-03-22 18:10 | NUR ---
Problems reprioritized. Patient report given, questions answered & plan of care reviewed with CORTES Bonner.
[2020-03-22] MEDS: OLANZAPINE 5 MG TABLET PO SCH (20:23)
[2020-03-22] MEDS: HYDROcodone/acetaminophen 5mg/325mg tablet PO PRN (22:42)
[2020-03-23] MEDS: vancomycin 125mg/5ml ORAL solution 5ml UD bottle PO SCH ×4 (02:52→20:08)
[2020-03-23 04:36] VITALS: BP 127/79
[2020-03-23 05:16] LABS: BASOPHILS # (AUTO) 0.1 X10'3 (0-0.2); BASOPHILS % (AUTO) 0.8 % (0-1); EOSINOPHILS # (AUTO) 0.2 X10'3 (0-0.9); EOSINOPHILS % (AUTO) 2.1 % (0-6); HEMATOCRIT 34.7 % (42.0-52.0); HEMOGLOBIN 11.9 g/dl (14.0-17.9); LYMPHOCYTES # (AUTO) 2.8 X10'3 (1.1-4.8); LYMPHOCYTES % (AUTO) 31.6 % (21-51); MEAN CORPUSCULAR HGB CONC 34.4 g/dL (33.0-36.5); MEAN CORPUSCULAR VOLUME 98.7 FL (78-98); MEAN PLATELET VOLUME 7.7 FL (7.4-10.4); MONOCYTES # (AUTO) 0.9 X10'3 (0-0.9); MONOCYTES % (AUTO) 10.8 % (2-12); NEUTROPHILS # (AUTO) 4.8 X10'3 (1.8-7.7); NEUTROPHILS % (AUTO) 54.7 % (42-75); PLATELET COUNT 358 X10'3 (140-440); RED BLOOD COUNT 3.51 X10'6 (4.70-6.10); RED CELL DISTRIBUTION WIDTH 12.9 % (11.5-14.5); WHITE BLOOD COUNT 8.7 X10'3 (4.5-11.0)
[2020-03-23 05:25] LABS: ALANINE AMINOTRANSFERASE 20 U/L (12-78); ALBUMIN 2.8 G/DL (3.4-5.0); ALBUMIN/GLOBULIN RATIO 0.9 (1.1-1.5); ALKALINE PHOSPHATASE 53 IU/L (46-116); ANION GAP 5 (8-16); ASPARTATE AMINO TRANSFERASE 8 U/L (10-37); BILIRUBIN,TOTAL 0.4 MG/DL (0.1-1.0); BLOOD UREA NITROGEN 8 MG/DL (7-18); BUN/CREATININE RATIO 12.7 (5.4-32.0); CALCIUM 9.3 MG/DL (8.5-10.1); CHLORIDE 107 MMOL/L (99-107); CREATININE 0.63 MG/DL (0.60-1.10); GLUCOSE 97 MG/DL (70-104); SODIUM 141 MMOL/L (135-145); TOTAL CARBON DIOXIDE 28.7 MMOL/L (24-32); eGFR > 90 ML/MIN
--- NOTE | 2020-03-23 07:03 | NUR ---
Patient in room LILY 358. I have received report from WOO KOLB and had the opportunity to ask questions and assume patient care.
[2020-03-23 07:08] VITALS: BP 145/83
[2020-03-23] MEDS: K and/or MAG REPLACEMENT MC SCH ×4 (08:00→20:00)
[2020-03-23] MEDS: docusate sod 100mg capsule PO SCH ×2 (08:37→20:00)
[2020-03-23] MEDS: sertraline 25mg tablet PO SCH (08:37)
[2020-03-23] MEDS: pantoprazole 40mg Tablet.DR PO SCH (08:38)
[2020-03-23 11:00] VITALS: BP 135/81
[2020-03-23 12:39] LABS: MAGNESIUM 1.7 MG/DL (1.5-2.4)
[2020-03-23 18:00] VITALS: BP 122/80
--- NOTE | 2020-03-23 18:38 | NUR ---
. patient pleasant and cooperative. No c/o pain. Seen by DR Driver , continues on PO vanco for positive c.diff .No c/o pain. is social admit awaiting placement.report given to Prudence RN
[2020-03-23] MEDS: OLANZAPINE 5 MG TABLET PO SCH (20:08)
[2020-03-23] MEDS: HYDROcodone/acetaminophen 5mg/325mg tablet PO PRN (20:17)
--- NOTE | 2020-03-23 20:23 | NUR ---
Patient refused due to loose bm
[2020-03-24 00:40] VITALS: BP 104/70
[2020-03-24] MEDS: vancomycin 125mg/5ml ORAL solution 5ml UD bottle PO SCH ×4 (02:48→19:53)
--- NOTE | 2020-03-24 05:07 | NUR ---
Student documentation: I have reviewed and agree with all interventions, assessments performed and documented by CORIN Bhatti
--- NOTE | 2020-03-24 05:08 | NUR ---
Student Medication Administration: For this medication-pass time frame, all medication were reviewed, dispensed, administered and documented per hospital policy by CORIN Bhatti
[2020-03-24 05:19] LABS: BASOPHILS # (AUTO) 0.1 X10'3 (0-0.2); BASOPHILS % (AUTO) 0.8 % (0-1); EOSINOPHILS # (AUTO) 0.2 X10'3 (0-0.9); EOSINOPHILS % (AUTO) 1.8 % (0-6); HEMATOCRIT 36.9 % (42.0-52.0); HEMOGLOBIN 12.4 g/dl (14.0-17.9); LYMPHOCYTES # (AUTO) 2.6 X10'3 (1.1-4.8); LYMPHOCYTES % (AUTO) 28.8 % (21-51); MEAN CORPUSCULAR HEMOGLOBIN 33.3 PG (27.0-31.0); MEAN CORPUSCULAR HGB CONC 33.6 g/dL (33.0-36.5); MEAN PLATELET VOLUME 7.8 FL (7.4-10.4); MONOCYTES # (AUTO) 0.8 X10'3 (0-0.9); MONOCYTES % (AUTO) 8.3 % (2-12); NEUTROPHILS # (AUTO) 5.4 X10'3 (1.8-7.7); NEUTROPHILS % (AUTO) 60.3 % (42-75); PLATELET COUNT 383 X10'3 (140-440); RED BLOOD COUNT 3.73 X10'6 (4.70-6.10); RED CELL DISTRIBUTION WIDTH 13.1 % (11.5-14.5)
[2020-03-24 05:22] LABS: ALANINE AMINOTRANSFERASE 23 U/L (12-78); ALBUMIN/GLOBULIN RATIO 0.8 (1.1-1.5); ALKALINE PHOSPHATASE 58 IU/L (46-116); ANION GAP 8 (8-16); ASPARTATE AMINO TRANSFERASE 11 U/L (10-37); BILIRUBIN,TOTAL 0.4 MG/DL (0.1-1.0); BLOOD UREA NITROGEN 13 MG/DL (7-18); BUN/CREATININE RATIO 22.8 (5.4-32.0); CALCIUM 9.7 MG/DL (8.5-10.1); CHLORIDE 103 MMOL/L (99-107); CREATININE 0.57 MG/DL (0.60-1.10); GLUCOSE 97 MG/DL (70-104); POTASSIUM 3.7 MMOL/L (3.5-5.1); SODIUM 141 MMOL/L (135-145); TOTAL CARBON DIOXIDE 29.7 MMOL/L (24-32); TOTAL PROTEIN 6.6 G/DL (6.4-8.2); eGFR > 90 ML/MIN
--- NOTE | 2020-03-24 06:11 | NUR ---
Problems reprioritized. Patient report given, questions answered & plan of care reviewed with JIM KOLB.Patient resting with no sign of discomfort. He had 2 large BMs on noc shift.
--- NOTE | 2020-03-24 06:48 | NUR ---
Patient in room LILY 358B. I have received report from CORTES ARMSTRONG and had the opportunity to ask questions and assume patient care.
[2020-03-24 07:00] VITALS: BP 96/67
[2020-03-24] MEDS: docusate sod 100mg capsule PO SCH ×2 (08:00→19:53)
[2020-03-24] MEDS: K and/or MAG REPLACEMENT MC SCH ×4 (08:00→19:19)
[2020-03-24] MEDS: sertraline 25mg tablet PO SCH (09:41)
[2020-03-24] MEDS: pantoprazole 40mg Tablet.DR PO SCH (09:41)
[2020-03-24 11:00] VITALS: BP 90/60
--- NOTE | 2020-03-24 18:33 | NUR ---
Problems reprioritized. Patient report given, questions answered & plan of care reviewed with CORTES DESIR.
[2020-03-24] MEDS: OLANZAPINE 5 MG TABLET PO SCH (19:53)
[2020-03-24 19:57] VITALS: BP 107/63
[2020-03-24] MEDS: HYDROcodone/acetaminophen 5mg/325mg tablet PO PRN (20:04)
[2020-03-25 00:03] VITALS: BP 109/70
[2020-03-25] MEDS: vancomycin 125mg/5ml ORAL solution 5ml UD bottle PO SCH ×4 (02:32→21:38)
[2020-03-25 05:29] LABS: BASOPHILS # (AUTO) 0.1 X10'3 (0-0.2); BASOPHILS % (AUTO) 0.8 % (0-1); EOSINOPHILS # (AUTO) 0.2 X10'3 (0-0.9); HEMATOCRIT 37.2 % (42.0-52.0); HEMOGLOBIN 12.9 g/dl (14.0-17.9); LYMPHOCYTES # (AUTO) 2.9 X10'3 (1.1-4.8); LYMPHOCYTES % (AUTO) 34.9 % (21-51); MEAN CORPUSCULAR HEMOGLOBIN 34.4 PG (27.0-31.0); MEAN CORPUSCULAR HGB CONC 34.6 g/dL (33.0-36.5); MEAN CORPUSCULAR VOLUME 99.4 FL (78-98); MEAN PLATELET VOLUME 7.8 FL (7.4-10.4); MONOCYTES # (AUTO) 0.7 X10'3 (0-0.9); NEUTROPHILS # (AUTO) 4.4 X10'3 (1.8-7.7); NEUTROPHILS % (AUTO) 53.3 % (42-75); PLATELET COUNT 405 X10'3 (140-440); RED BLOOD COUNT 3.74 X10'6 (4.70-6.10); WHITE BLOOD COUNT 8.2 X10'3 (4.5-11.0)
[2020-03-25 05:42] LABS: ALANINE AMINOTRANSFERASE 22 U/L (12-78); ALBUMIN 2.9 G/DL (3.4-5.0); ALBUMIN/GLOBULIN RATIO 0.8 (1.1-1.5); ALKALINE PHOSPHATASE 55 IU/L (46-116); ANION GAP 9 (8-16); ASPARTATE AMINO TRANSFERASE 13 U/L (10-37); BILIRUBIN,TOTAL 0.4 MG/DL (0.1-1.0); BLOOD UREA NITROGEN 14 MG/DL (7-18); BUN/CREATININE RATIO 23.7 (5.4-32.0); CALCIUM 9.3 MG/DL (8.5-10.1); CHLORIDE 102 MMOL/L (99-107); CREATININE 0.59 MG/DL (0.60-1.10); GLUCOSE 101 MG/DL (70-104); POTASSIUM 3.5 MMOL/L (3.5-5.1); SODIUM 139 MMOL/L (135-145); TOTAL CARBON DIOXIDE 27.7 MMOL/L (24-32); TOTAL PROTEIN 6.6 G/DL (6.4-8.2); eGFR > 90 ML/MIN
--- NOTE | 2020-03-25 06:48 | NUR ---
Patient in room LILY 358. I have received report from Norma KOLB and had the opportunity to ask questions and assume patient care.
[2020-03-25 07:00] VITALS: BP 106/77
[2020-03-25] MEDS: ondansetron/PF 4mg/2ml inj IV PRN ×2 (07:51→20:31)
[2020-03-25] MEDS: pantoprazole 40mg Tablet.DR PO SCH (07:51)
[2020-03-25] MEDS: sertraline 25mg tablet PO SCH (07:53)
[2020-03-25] MEDS: docusate sod 100mg capsule PO SCH (08:00)
[2020-03-25] MEDS: K and/or MAG REPLACEMENT MC SCH ×4 (08:00→20:00)
[2020-03-25 11:00] VITALS: BP 118/68
--- NOTE | 2020-03-25 11:02 | NUR ---
Paged Dr. Driver PAGER ID: [phone] MESSAGE: Surgical Santiago KOLB ext [phone]. RE:Mike Abdi. Patient still complaining of heartburn even after I have protonix this am. Can we get order for Tums
[2020-03-25] MEDS: calcium carbonate 500mg chew tablet PO SCH ×2 (11:41→18:53)
--- NOTE | 2020-03-25 16:34 | NUR ---
Paged Dr. Driver PAGER ID: [phone] MESSAGE: Surgical Flr Santiago RN ext [phone]. RE: Mike Abdi. Patient has been having watery diarrhea about 8 times today. Can we please have order for rectal tube
--- NOTE | 2020-03-25 18:16 | NUR ---
Rectal tube inserted into the rectum, tolerated the procedure well.
--- NOTE | 2020-03-25 18:29 | NUR ---
Problems reprioritized. Patient report given, questions answered & plan of care reviewed with Norma KOLB.
[2020-03-25] MEDS: normal saline 1000ml 1,000 ML IV SCH (18:53)
[2020-03-25 19:00] VITALS: BP 94/73
[2020-03-25 20:40] VITALS: BP 114/69
[2020-03-25] MEDS: HYDROcodone/acetaminophen 5mg/325mg tablet PO PRN (21:38)
[2020-03-25] MEDS: OLANZAPINE 5 MG TABLET PO SCH (21:38)
[2020-03-26] VITALS: BP 116/70
[2020-03-26] MEDS: vancomycin 125mg/5ml ORAL solution 5ml UD bottle PO SCH ×4 (02:02→20:43)
[2020-03-26] MEDS: normal saline 1000ml 1,000 ML IV SCH ×2 (05:25→15:10)
[2020-03-26 05:38] LABS: BASOPHILS # (AUTO) 0.1 X10'3 (0-0.2); BASOPHILS % (AUTO) 1.1 % (0-1); EOSINOPHILS # (AUTO) 0.1 X10'3 (0-0.9); EOSINOPHILS % (AUTO) 0.5 % (0-6); HEMOGLOBIN 13.2 g/dl (14.0-17.9); LYMPHOCYTES # (AUTO) 2.6 X10'3 (1.1-4.8); LYMPHOCYTES % (AUTO) 21.8 % (21-51); MEAN CORPUSCULAR HEMOGLOBIN 33.6 PG (27.0-31.0); MEAN CORPUSCULAR HGB CONC 33.7 g/dL (33.0-36.5); MEAN CORPUSCULAR VOLUME 99.6 FL (78-98); MEAN PLATELET VOLUME 7.6 FL (7.4-10.4); MONOCYTES # (AUTO) 0.8 X10'3 (0-0.9); MONOCYTES % (AUTO) 6.6 % (2-12); NEUTROPHILS # (AUTO) 8.3 X10'3 (1.8-7.7); PLATELET COUNT 432 X10'3 (140-440); RED BLOOD COUNT 3.92 X10'6 (4.70-6.10); RED CELL DISTRIBUTION WIDTH 13.1 % (11.5-14.5); WHITE BLOOD COUNT 11.8 X10'3 (4.5-11.0)
[2020-03-26 06:11] LABS: ALANINE AMINOTRANSFERASE 21 U/L (12-78); ALBUMIN/GLOBULIN RATIO 0.8 (1.1-1.5); ALKALINE PHOSPHATASE 56 IU/L (46-116); ANION GAP 13 (8-16); ASPARTATE AMINO TRANSFERASE 13 U/L (10-37); BILIRUBIN,TOTAL 0.6 MG/DL (0.1-1.0); BLOOD UREA NITROGEN 20 MG/DL (7-18); BUN/CREATININE RATIO 21.5 (5.4-32.0); CALCIUM 9.1 MG/DL (8.5-10.1); CHLORIDE 104 MMOL/L (99-107); CREATININE 0.93 MG/DL (0.60-1.10); GLUCOSE 108 MG/DL (70-104); POTASSIUM 3.3 MMOL/L (3.5-5.1); SODIUM 137 MMOL/L (135-145); TOTAL PROTEIN 6.7 G/DL (6.4-8.2); eGFR 81 ML/MIN
--- NOTE | 2020-03-26 06:29 | NUR ---
Patient in room LILY 358. I have received report from Norma KOLB and had the opportunity to ask questions and assume patient care.
--- NOTE | 2020-03-26 06:34 | NUR ---
Patient in room LILY 358B. I have received report from Norma KOLB and had the opportunity to ask questions and assume patient care.
--- NOTE | 2020-03-26 06:35 | NUR ---
Problems reprioritized. Patient report given, questions answered & plan of care reviewed with Margarita KOLB and Student Nurse Belle KOLB.
[2020-03-26] MEDS: K and/or MAG REPLACEMENT MC SCH ×3 (08:00→20:51)
[2020-03-26] MEDS: calcium carbonate 500mg chew tablet PO SCH ×3 (08:13→17:13)
[2020-03-26] MEDS: sertraline 25mg tablet PO SCH (08:13)
[2020-03-26] MEDS: pantoprazole 40mg Tablet.DR PO SCH (08:13)
[2020-03-26 09:06] VITALS: BP 126/81
--- NOTE | 2020-03-26 10:07 | NUR ---
Dr. Driver paged, Potassium 3.3, awaiting call back.
[2020-03-26 11:21] VITALS: BP 112/72
[2020-03-26] MEDS ORDERED: potassium CL 10mEq/100ml bag 100 ML IV PRN (11:55)
[2020-03-26] MEDS ORDERED: potassium Cl 20 mEq SR tablet PO PRN (11:55)
[2020-03-26] MEDS ORDERED: magnesium Cl slow-release 64mg tablet PO PRN (11:55)
[2020-03-26] MEDS ORDERED: magnesium 4gm in 100ml NS 100 ML IV PRN (11:55)
[2020-03-26] MEDS: potassium Cl 20 mEq SR tablet PO PRN ×3 (13:06→20:46)
--- NOTE | 2020-03-26 13:31 | NUR ---
Reassessment: Pt continues with 75-100% PO intake on regular diet meeting estimated nutrient needs. Pt now with a rectal tube in place. LBM 03/25 documented with 1L out per I&O. Will continue to follow and monitor need for nutrition intervention. Rec: 1. continue regular diet 2. Ensure Enlive BIDBD 3. consider anti-diarrheal if MD agreeable given DX 4. weekly wts Addendum: 03/26/20 at [address] Amended: Links added.
--- NOTE | 2020-03-26 18:30 | NUR ---
Problems reprioritized. Patient report given, questions answered & plan of care reviewed with BARBARA KOLB AND MARIZA KOLB.
--- NOTE | 2020-03-26 18:33 | NUR ---
Problems reprioritized. Patient report given, questions answered & plan of care reviewed with Bowen KOLB and Mega KOLB.
--- NOTE | 2020-03-26 18:33 | NUR ---
Student documentation: I have reviewed all interventions, assessments performed and documented by Belle Student Nurse. Student Medication Administration: For this medication-pass time frame, all medication were reviewed, dispensed, administered and documented per hospital policy by Belle Student Nurse.
[2020-03-26 19:31] VITALS: BP 126/75
[2020-03-26] MEDS: OLANZAPINE 5 MG TABLET PO SCH (20:43)
[2020-03-26] MEDS: famotidine 20mg tablet PO SCH (20:43)
[2020-03-26] MEDS: lactobacillus rhamnosus 10,000 MMU CELLS/CAPSULE PO SCH (20:43)
[2020-03-27 00:48] VITALS: BP 133/92
[2020-03-27] MEDS: normal saline 1000ml 1,000 ML IV SCH ×2 (01:32→10:03)
[2020-03-27] MEDS: vancomycin 125mg/5ml ORAL solution 5ml UD bottle PO SCH ×3 (02:05→13:25)
[2020-03-27] MEDS: HYDROcodone/acetaminophen 5mg/325mg tablet PO PRN ×2 (02:05→10:03)
[2020-03-27] MEDS: pantoprazole 40mg Tablet.DR PO SCH (07:30)
[2020-03-27] MEDS: sertraline 25mg tablet PO SCH (08:00)
[2020-03-27] MEDS: K and/or MAG REPLACEMENT MC SCH (08:00)
[2020-03-27] MEDS: lactobacillus rhamnosus 10,000 MMU CELLS/CAPSULE PO SCH (08:00)
[2020-03-27 09:32] LABS: BASOPHILS # (AUTO) 0.1 X10'3 (0-0.2); BASOPHILS % (AUTO) 0.9 % (0-1); EOSINOPHILS # (AUTO) 0.1 X10'3 (0-0.9); EOSINOPHILS % (AUTO) 1.7 % (0-6); HEMATOCRIT 32.2 % (42.0-52.0); HEMOGLOBIN 10.9 g/dl (14.0-17.9); LYMPHOCYTES # (AUTO) 2.1 X10'3 (1.1-4.8); LYMPHOCYTES % (AUTO) 28.5 % (21-51); MEAN CORPUSCULAR HEMOGLOBIN 33.3 PG (27.0-31.0); MEAN PLATELET VOLUME 7.6 FL (7.4-10.4); MONOCYTES # (AUTO) 0.5 X10'3 (0-0.9); MONOCYTES % (AUTO) 7.6 % (2-12); NEUTROPHILS # (AUTO) 4.4 X10'3 (1.8-7.7); NEUTROPHILS % (AUTO) 61.3 % (42-75); PLATELET COUNT 355 X10'3 (140-440); RED BLOOD COUNT 3.28 X10'6 (4.70-6.10); RED CELL DISTRIBUTION WIDTH 12.7 % (11.5-14.5); WHITE BLOOD COUNT 7.2 X10'3 (4.5-11.0)
[2020-03-27 09:45] LABS: ALANINE AMINOTRANSFERASE 18 U/L (12-78); ALBUMIN 2.5 G/DL (3.4-5.0); ALBUMIN/GLOBULIN RATIO 0.9 (1.1-1.5); ALKALINE PHOSPHATASE 52 IU/L (46-116); ANION GAP 7 (8-16); ASPARTATE AMINO TRANSFERASE 10 U/L (10-37); BILIRUBIN,TOTAL 0.5 MG/DL (0.1-1.0); BLOOD UREA NITROGEN 10 MG/DL (7-18); BUN/CREATININE RATIO 15.4 (5.4-32.0); CALCIUM 8.3 MG/DL (8.5-10.1); CHLORIDE 112 MMOL/L (99-107); CREATININE 0.65 MG/DL (0.60-1.10); GLUCOSE 96 MG/DL (70-104); POTASSIUM 4.1 MMOL/L (3.5-5.1); SODIUM 139 MMOL/L (135-145); TOTAL CARBON DIOXIDE 20.3 MMOL/L (24-32); TOTAL PROTEIN 5.4 G/DL (6.4-8.2); eGFR > 90 ML/MIN
[2020-03-27] MEDS: calcium carbonate 500mg chew tablet PO SCH ×2 (09:55→13:25)
[2020-03-27] MEDS: famotidine 20mg tablet PO SCH (09:57)
[2020-03-27] MEDS: potassium Cl 20 mEq SR tablet PO PRN (10:01)
[2020-03-27] MEDS ORDERED: VANC5VIA PO (11:01)
[2020-03-27] MEDS ORDERED: OLAN5TAB26 PO (11:01)
[2020-03-27] MEDS ORDERED: PANT40TA54 PO (11:01)
[2020-03-27] MEDS ORDERED: SERT25TA5 PO (11:01)
[2020-03-27] MEDS ORDERED: FAMO20TA8 PO (11:01)
--- NOTE | 2020-03-27 11:19 | NUR ---
Pt. states he thinks his PCP Torsten Saldana is retired and he needs a new PCP. Call Liliam with SS. Left voicemail.
[2020-03-27 12:00] VITALS: BP 136/82
--- NOTE | 2020-03-27 12:02 | NUR ---
Went in the room to prepare pt. for DC. Pt did not seem to fully understand medication regimen or discharge paperwork although A&O x 4. Spoke with "Best Worker" which is a retired vet who is homeless. Best Worker states he really needs someone to help take care of the pt. The pt. can not walk and uses a w/c. This friend has been caring for pt. but when pt. went into hospital they lost their hotel room and now caregiver is staying with his sister. He would like to not leave his friend at the hospital with no support but he also feels it is not his responsibility to care for the pt. He no longer has a place for the pt. to stay. Best Worker also states he is uncomfortable with medication regimen. Is asking for IHSS at least, or some support. CM made aware. SS paged.
--- NOTE | 2020-03-27 13:40 | NUR ---
DISCHARGE NOTE After speaking with Liliam in SS and Lory in , primary RN aware pt. has the resources to go home. He has a high enough income to be able to afford his own care if need and states he has been provided with resources to find help. Pt. friend/printed circuit board pcb designer willing to pick pt. up. Reviewed discharge paperwork with pt. EXTENSIVELY. Pt. is aware of his discharge medications and gave poor verbal feedback at first, but after several reminders was able to give feedback on the schedules of his new medications and the reasons why he was taking them. pt. even stated he would set his alarm at 2 am to take his 3rd. oral Vanco dose. Pt and caregiver aware to clean home bathroom with bleach and not to share bathrooms. Pt. aware to continue taking a daily probiotic. Discharge paperwork reviewed with Yves Ansari/printed circuit board pcb designer on the phone as well. IV DC'd pressure bandage applied, no s/sx bleeding noted. Belongings were gathered and clothes were provided for pt. Pt. was given assistance getting dressed, and was transferred to a hospital w/c and escorted downstairs to his ride by hospital staff member.
--- NOTE | 2020-03-27 16:00 | NUR ---
MEDICATION DISCHARGE ISSUE. SS notified this primary RN that Vancomycin could not be filled at pharmacy r/t the word "vial refers to IV medication and medication should be oral. Also pt's preferred pharmacy does not carry oral solution of Vancomycin only [facility] does. Also there was a misunderstanding with pt.'s insurance and pt. had less insurance than was expected. Pt. does not want to pay for medications out of pocket especially since Vanco is expensive. director fundraising Arun with SS will attempt to arrange prescription citrus picker at [facility] tomorrow morning and get GOOD RX for pt. so that he does not need to spend an ample amount of money on medications per Liliam. SS did request that RN adjust the order to reflect the MD's intended medication order. This primary RN adjusted medications per order in discharge.
[2020-03-27] MEDS ORDERED: vancomycin hcl PO (21:10)
== END 2020-03-27 13:40 | disposition home or self-care (01) | DRG 372 ==
LOC: ER 12:49 → ED HOLD 03-14 01:11 → ORTHO 4S 03-14 05:00 → SUR 3N 03-22 03:03
PROVIDERS: ADMIT Internal Medicine; ATTEND Family Medicine
DX: A04.72 Enterocolitis due to Clostridium difficile, not specified as recurrent (principal); Z68.1 Body mass index [BMI] 19.9 or less, adult; E44.1 Mild protein-calorie malnutrition; F17.210 Nicotine dependence, cigarettes, uncomplicated; F32.9 Major depressive disorder, single episode, unspecified; F60.9 Personality disorder, unspecified; M54.5 Low back pain; R10.13 Epigastric pain; G89.29 Other chronic pain; R62.7 Adult failure to thrive; E87.6 Hypokalemia; K59.00 Constipation, unspecified; Z87.828 Personal history of other (healed) physical injury and trauma; Z99.3 Dependence on wheelchair; Z88.0 Allergy status to penicillin; Z88.5 Allergy status to narcotic agent; Z59.0 Homelessness
CPT/HCPCS: 36415; 70450; 70546; 71045; 72110; 72148; 72156; 72157; 72158; 80048; 80053; 80061; 80305; 80320; 81001; 82948; 83036; 83735; 84443; 85025; 85651; 86140; 87081; 87324; 87449; 87493; 93005; 96360; 97110; 97112; 97163; 97530; 97535; 99285; A9575; G0378; J2405; J7030